=== PATIENT | male | born 1955 | race Caucasian/White ===

== ENCOUNTER 2024-04-16 14:22 | Emergency (ER) | payer MEDICARE, OTHER, SELFPAY ==
[2024-04-16 14:25] VITALS: BP 161/91; PULSE 75; RESP 14; TEMP 36.6; O2SAT 96
--- NOTE | 2024-04-16 14:30 | DI.US_ITS ---
Exam(s) US LOWER EXTREMITY VENOUS RT EXAM: US LOWER EXTREMITY VENOUS RT CLINICAL HISTORY: recent travel, leg pain. TECHNIQUE: Lower extremity venous ultrasound performed using grayscale, color-flow, and spectral Do ppler analysis. COMPARISON: No exams were available for comparison FINDINGS: The common femoral, femoral and popliteal veins demonstrate normal compressibility, augmentation, and color Doppler. The posterior tibial veins are patent. No saphenous vein thrombosis or other superfi cial venous thrombosis is seen. No hematoma or Amaro's cyst is seen. IMPRESSION: Negative lower extremity ultrasound. No evidence of DVT. DATA REPOSITORY:
--- NOTE | 2024-04-16 14:42 | ED.GENADUL_ITS ---
Discharge Plan Disposition Patient Disposition: Home Condition: Stable Discharge Details Clinical Impression: Leg pain, right Primary Care Provider: Unknown,Unknown ED Provider: Ty Mak Home Meds and New Rx's Prescriptions: Continued aspirin 81 mg capsule 81 mg PO DAILY atorvastatin [Lipitor] 10 mg tablet 10 mg PO DAILY cholecalciferol (vitamin D3) [Vitamin D3] 50 mcg (2,000 unit) tablet 50 mcg PO DAILY Discharge Instructions Additional Instructions: Your ultrasound and x-rays did not show any concerning findings at this time. Follow-up with your primary care provider this week especially if your pain is continuing Return to the emergency department if you have severe worsening pain, feel more ill or have new symptoms such as high fevers. HPI General Date/Time Provider Initiated Documentation: 04/16/24 14:34 . Limitations to Documentation: no limitations . Information obtained by: patient . History of Present Illness 68 year old M presents to the emergency department with the chief complaint of right leg pain, described as moderate, and is localized to the right and lower extremity. Patient reports no radiation. Patient started experiencing this day(s) (5) and it has been constant. No relieving factors improve symptom(s), No exacerbating factors reported . Patient notes denies fever/chills and shortness of breath. Patient did receive the following treatments prior to arrival, none Related Data Home Medications ?Medication ?Instructions ?Recorded ?Confirmed aspirin 81 mg capsule 81 mg PO DAILY 04/16/24 04/16/24 atorvastatin 10 mg tablet (Lipitor) 10 mg PO DAILY 04/16/24 04/16/24 cholecalciferol (vitamin D3) 50 50 mcg PO DAILY 04/16/24 04/16/24 mcg (2,000 unit) tablet (Vitamin D3) Allergies Allergy/AdvReac Type Severity Reaction Status Date / Time No Known Allergies Allergy Verified 04/16/24 14:30 General Stated Complaint: Orthopedic AUTUMN: 3 Review of Systems All systems reviewed & are unremarkable except as noted in HPI and below Constitutional Constitutional: Denies chills, Denies fever(s) and Denies weakness Cardiovascular Cardiovascular: Denies chest pain and Denies dyspnea Respiratory Respiratory: Denies cough and Denies dyspnea Musculoskeletal Musculoskeletal: Denies numbness Neurologic Neurologic: Denies numbness and Denies weakness Exam Const General: no acute distress Orientation: alert HENMT Head: normal to inspection Ears: external ears normal General nose exam: external nose normal Mouth: moist mucous membranes Eyes General: appearance normal, both eyes and all related structures Neck Neck: normal visual inspection Resp Effort & Inspection: normal respiratory effort and able to speak in complete sentences Cardio Rate: regular rate Skin General skin exam: no rashes or lesions noted Neuro General: patient alert and patient oriented x3 Extrem General: normal to inspection, full ROM and capillary refill normal Psych Mental Status: mental status grossly normal Course Vital Signs Vital signs: Vital Signs Temperature 36.6 C 04/16/24 14:25 Pulse 75 04/16/24 14:25 Respiratory Rate 14 04/16/24 14:25 Blood Pressure 161/91 H 04/16/24 14:25 Pulse Oximetry 96 04/16/24 14:25 Temperature 36.6 C 04/16/24 14:25 Temperature Source Oral 04/16/24 14:25 Pulse 75 04/16/24 14:25 Respiratory Rate 14 04/16/24 14:25 Respiratory Effort Normal, Non-Labored 04/16/24 14:32 Blood Pressure 161/91 H 04/16/24 14:25 Pulse Oximetry 96 04/16/24 14:25 Oxygen Delivery Method Room Air 04/16/24 14:25 Oxygen Flow Rate 0 04/16/24 14:25 Pain Level 2 04/16/24 14:25 Comment Pain = 8 or 9 w/ standing/wt. bearing. 04/16/24 14:25 Medical Decision Making 69-year-old male who says he been traveling for the last 14 days has done some hiking, comes in with 5 days of nontraumatic right leg pain. He localizes the pain just superior to the right knee. He denies any fevers, leg swelling, paresthesias. No abdominal pain or back pain. No shortness of breath or chest pain. He is well-appearing on exam. He has no swelling of the leg and intact distal pulses. There is no swelling or warmth of the knee. His pain is just superior to the knee over the medial thigh with no palpable or visible deformities. No palpable or visible deformities of the hip. He does have full range of motion of all joints in his right leg. No findings on exam to suggest arterial occlusion, no findings to suggest septic joint. I suspect mus culoskeletal strain but given he has been traveling will obtain a DVT ultrasound to exclude DVT. Also obtain x-rays of the femur low low suspicion for fractures. Patient's ultrasound shows no DVT, x-rays on my read show no acute findings. Exam is stable with no concerning findings. Suspect musculoskeletal leg pain, will have him follow-up with his PCP, return precautions given. Differential Diagnosis Differential Diagnosis: Strain, pathological fracture, DVT Quality:SDOH Health Related Social Needs: No Data to Display PFSH All Active Problems (Updated 04/16/24 @ 16:35 by Ty Mak MD) Leg pain, right (Acute) Social History Smoking/Tobacco Use Status: Never Smoking risk assessment performed?: Yes Alcohol Intake: current Alcohol Intake frequency: a few times a week Alcohol type: beer Drug use: Never Substance use type: does not use Do you feel safe at home: Yes Do you feel safe in your relationship?: Yes
--- NOTE | 2024-04-16 15:53 | DI.RAD_ITS ---
Exam(s) XR KNEE RT 3V AP,LAT,NUSRAT XR FEMUR RT EXAM: XR KNEE RT 3V AP,LAT,NUSRAT CLINICAL HISTORY: pain. TECHNIQUE: 2D digital imaging was performed. Three views of the knee. AP and lateral views of the femur. COMPARISON: CR XR FEMUR RT from 04/16/2024 FINDINGS: BONES: No acute fracture is present. No bony destructive lesion is seen. JOINTS: The knee is normally aligned. No joint effusion is seen. Mild to moderate degenerative lynn es at the hip. SOFT TISSUE: Normal. IMPRESSION: No acute abnormality involving the knee or femur. DATA REPOSITORY: RADIATION DOSE DELIVERED:
[2024-04-16 17:17] VITALS: BP 179/107; PULSE 78; RESP 18; TEMP 36.5; O2SAT 100
== END 2024-04-16 17:02 | disposition home or self-care (01) ==
PROVIDERS: Emergency Provider Emergency Medicine
DX: M25.561 Pain in right knee (principal); M79.651 Pain in right thigh
CPT/HCPCS: 73552; 73562; 99284; 93971; 99283